=== PATIENT | female | born 1955 | race African-American/Black ===

== ENCOUNTER 2017-01-15 08:15 | Outpatient (RCR) | payer MEDICARE, OTHER ==
[~2017-01-15 08:15] MED LIST: ATENOLOL50 MG ORAL; BUSPAR10 MG PO; DILANTIN100 MG ORAL; ELIMITE 5% CREA60 GM TOPIC; FLUOXETINE HCL20 MG ORAL; PHENERGAN25 M1 ORAL; QUETIAPINE FUM200 MG ORAL; TRAZODONE HCL150 MG ORAL; ZOFRAN4 MG ORAL
== END 2017-02-04 | disposition home or self-care (01) ==
LOC: PTY 08:15
DX: M54.5 Low back pain (principal); M25.562 Pain in left knee
CPT/HCPCS: 97110; 97163; G0283; G8981; G8982

== ENCOUNTER 2017-02-06 07:00 | Outpatient (RCR) | payer MEDICARE, OTHER ==
[2017-02-13] MEDS ORDERED: ACETAMINOPHEN-1 EAC1 ORAL (15:22)
== END 2017-03-07 | disposition home or self-care (01) ==
LOC: PTY 07:00
DX: M54.5 Low back pain (principal); M25.562 Pain in left knee
CPT/HCPCS: 97110; G0283

== ENCOUNTER 2017-02-13 14:03 | Emergency (ER) | payer MEDICARE, OTHER ==
[~2017-02-13] VITALS: Ht 162.6 cm; Wt 68.0 kg
[2017-02-13 14:46] VITALS: BP 160/80
[2017-02-13] MEDS ORDERED: Tylenol #3 tab (300mg/30mg) ORAL ONE (15:00)
--- NOTE | 2017-02-13 15:11 | Diagnostic Imaging Report ---
Indication: Pain Findings: 3 views of the left wrist were obtained. There is sclerosis and heterogeneity of the lunate suspicious for AVN. No obvious fracture seen. There is narrowing of the radioscaphoid joint. Impression: Abnormal lunate. AVN may be present.
[2017-02-13] MEDS ORDERED: ACETAMINOPHEN-1 EAC1 ORAL (15:22)
[2017-02-13 15:34] VITALS: BP 160/80
--- NOTE | 2017-02-13 22:43 | Emergency Room Report ---
History of Present Illness General Chief Complaint: Upper Extremity Injury Source: Patient Present Illness HPI The patient is a 60-year-old female presenting for left wrist pain which began last night. The patient states that she awoke from a bad dream and swung the left wrist into her drawer by mistake. Pain is described as an 8/10 dull ache to the wrist and does not radiate. Pain worse with movement. She denies any previous injury to this area. She denies any numbness or tingling. She denies any other symptoms including rash, fever, chills Allergies: Coded Allergies: No Known Allergies (Verified , 05/09/08) Patient History Past Medical History: see triage record Pertinent Family History: none Reviewed Nursing Documentation: PMH: Agreed, PSxH: Agreed Nursing Documentation-PMH Hx Cardiac Problems: Yes Hx Hypertension: Yes Hx Pacemaker: No Hx Asthma: No Hx COPD: No Hx Diabetes: No Hx Cancer: No Hx Gastrointestinal Problems: No Hx Dialysis: No History Of Psychiatric Problem: Yes - depression Hx Neurological Problems: No Hx Cerebrovascular Accident: Yes Hx Seizures: No Review of Systems All Other Systems: negative except mentioned in HPI Physical Exam Vital Signs Date Time Temp Pulse Resp B/P Pulse Ox O2 Delivery O2 Flow Rate FiO2 02/13/17 14:25 97.9 72 16 160/80 98 02/13/17 14:46 Room Air Sp02 EP Interpretation: reviewed, normal General Appearance: no apparent distress, alert, GCS 15, non-toxic Head: normocephalic, atraumatic Eyes: bilateral eye PERRL, bilateral eye normal inspection Musculoskeletal: back normal, gait/station normal, normal range of motion, tender - TTP over the mid L wrist Neurologic: alert, oriented x3, responsive, motor strength/tone normal, sensory intact, normal gait, speech normal Psychiatric: judgement/insight normal, memory normal, mood/affect normal, no suicidal/homicidal ideation Skin: normal color, no rash, warm/dry, well hydrated Lymphatic: no adenopathy Procedures Splinting Splinting : Consent: Verbal Location: L wrist Pre-Made Type: velcro Splint: volar Pre-Proc Neuro Vasc Exam: normal Post-Proc Neuro Vasc Exam: normal Patient Tolerated: Well Complications: None Medical Decision Making PA Attestation Dr. Damico is my supervising physician. Patient management was discussed with my supervising physician Diagnostic Impression: Primary Impression: Wrist fracture, left Qualified Codes: S62.102A - Fracture of unspecified carpal bone, left wrist, initial encounter for closed fracture ER Course The patient is a 60-year-old female presenting for left wrist pain which began last night. Ddx considered include but not limited to sprain/strain, fracture, contusion Physical exam: Afebrile. No apparent distress. Left wrist: There is tenderness to palpation over the mid wrist. Full active range of motion. There is minimal edema to the medial aspect. No skin changes. Sensation is intact to light touch X-ray shows findings that may be consistent with AVN Patient denies previous fracture of this wrist. Volar splint is placed and the patient is given both disc and printout of findings. She will followup with orthopedics as soon as possible ER precautions are given Other X-Ray Diagnostic Results Other X-Ray Diagnostic Results : X-Ray Ordered: L wrist Date: February 13, 2017 EP Interpretation: Yes Findings: no dislocation, other - abnormal lunate Number of Views: 3 PA Scribe Text I am acting as scribe for my supervising physician. My supervising physician's interpretation of the L wrist xrays are there are findings that may be consistent with AVN of lunate. Last Vital Signs Date Time Temp Pulse Resp B/P Pulse Ox O2 Delivery O2 Flow Rate FiO2 02/13/17 15:34 97.9 72 16 160/80 98 Room Air Status: improved Disposition: HOME, SELF-CARE Condition: Improved Scripts Acetaminophen With Codeine (T#3) (TYLENOL #3 TAB*) Y Tab 1 TAB ORAL Q6HR Y for For Pain, #15 TAB Prov: EMMA HEMPHILL 02/13/17 Referrals: NON PHYSICIAN (PCP) Patient Instructions: Wrist Fracture, Wrist Pain Additional Instructions: I discussed my findings with the patient. All questions and concerns have been answered. Treatment and medication compliance have been addressed. I advised the patient that they need to follow up with PMD in 3-5 days. Return to ED if pain remains or worsens, numbness or tingling occurs, new rash is noticed, fever is noticed, or if needed for any reason. Patient verbalized understanding of discharge instructions. The patient was informed that she needs to see orthopedic doctor as soon as possible. She is given the x-ray findings as well as the images on a disc. EMMA HEMPHILL February 13, 2017 22:43
== END 2017-02-13 15:35 | disposition home or self-care (01) ==
LOC: EMR 15:32
DX: S62.102A Fracture of unspecified carpal bone, left wrist, initial encounter for closed fracture (principal); F32.9 Major depressive disorder, single episode, unspecified; Z86.73 Personal history of transient ischemic attack (TIA), and cerebral infarction without residual deficits; I10 Essential (primary) hypertension; W22.09XA Striking against other stationary object, initial encounter; Y92.003 Bedroom of unspecified non-institutional (private) residence as the place of occurrence of the external cause; Y99.8 Other external cause status
CPT/HCPCS: 29260; 99283

== ENCOUNTER 2017-03-14 07:45 | Outpatient (RCR) | payer MEDICARE, OTHER ==
[~2017-03-14 07:45] MED LIST changes: +ACETAMINOPHEN-1 EAC1 ORAL
== END 2017-04-06 | disposition home or self-care (01) ==
LOC: PTY 07:45
DX: M54.5 Low back pain (principal); M25.562 Pain in left knee
CPT/HCPCS: 97110; 97140; G0283

== ENCOUNTER 2018-11-29 11:54 | Inpatient (IN) | payer MEDICARE, OTHER ==
[~2018-11-29] VITALS: Ht 167.6 cm; Wt 79.4 kg
[2018-11-29] MEDS ORDERED: Morphine Sulfate 4mg/ml Inj (IV USE ONLY) IVP ONE ×2 (12:15→15:00)
[2018-11-29 12:42] LABS: EOSINOPHILS % (AUTO) 0.8 % (0.0-3.0); HEMATOCRIT 45.2 % (37.0-47.0); HEMOGLOBIN 15.6 G/DL (12.0-16.0); LYMPHOCYTES % (AUTO) 23.8 % (20.0-45.0); MEAN CORPUSCULAR VOLUME 89 FL (80-99); MONOCYTES % (AUTO) 8.8 % (1.0-10.0); NEUTROPHILS % (AUTO) 65.6 % (45.0-75.0); PLATELET COUNT 123 K/UL (150-450); RED BLOOD COUNT 5.05 M/UL (4.20-5.40); RED CELL DISTRIBUTION WIDTH 12.2 % (11.6-14.8); WHITE BLOOD COUNT 5.2 K/UL (4.8-10.8)
[2018-11-29] MEDS ORDERED: DiphenhydrAMINE 50mg/ml Inj IVP ONE (12:45)
[2018-11-29 12:56] LABS: ANION GAP 12 mmol/L (5-15); BLOOD UREA NITROGEN 36 mg/dL (7-18); CALCIUM 8.9 MG/DL (8.5-10.1); CARBON DIOXIDE 25 MMOL/L (21-32); CHLORIDE 94 MMOL/L (98-107); CREATININE 2.5 MG/DL (0.55-1.30); POTASSIUM 3.6 MMOL/L (3.5-5.1); SODIUM 130 MMOL/L (136-145)
[2018-11-29 12:59] LABS: ALANINE AMINOTRANSFERASE 60 U/L (12-78); ALBUMIN 3.5 G/DL (3.4-5.0); ALBUMIN/GLOBULIN RATIO 0.7 (1.0-2.7); ALKALINE PHOSPHATASE 178 U/L (46-116); ASPARTATE AMINO TRANSFERASE 82 U/L (15-37); BILIRUBIN,TOTAL 0.5 MG/DL (0.2-1.0)
--- NOTE | 2018-11-29 13:17 | Diagnostic Imaging Report ---
Indication: Cough Comparison: 08/14/2013 A single view chest radiograph was obtained. Findings: Cardiomediastinal appearance is within normal limits for age. The lungs are clear. Pulmonary vascularity is appropriate. The diaphragmatic contour is smooth and costophrenic angles are sharp. No pleural effusions are identified. The bones are unremarkable. Impression: No acute findings
--- NOTE | 2018-11-29 13:25 | Emergency Room Report ---
History of Present Illness General Chief Complaint: Flu Like Symptoms Source: Patient Present Illness HPI 63-year-old female with a history of seizure disorder on Dilantin, hypertension , stroke with left partial HP, psychiatric disease, p/w N/V/D, abdominal pain, f /c, myalgias for 3 days. She reports that this morning she woke up with an itchy rash on her arms as well. She reports she is not on any medications, has not been on antibiotics, and can't think of anything that triggered her symptoms. She does not have a recent seizure, she can compliant with Dilantin as well as all her other meds, and does not know what triggered the rash. Abdominal pain is vague, deep internal, achy moderate intensity. Allergies: Coded Allergies: No Known Allergies (Verified , 05/09/08) Patient History Past Medical History: see triage record Last Menstrual Period: n/a Reviewed Nursing Documentation: PMH: Agreed; PSxH: Agreed Nursing Documentation-PMH Past Medical History: No History, Except For Hx Cardiac Problems: Yes Hx Hypertension: Yes Hx Pacemaker: No Hx Asthma: No Hx COPD: No Hx Diabetes: No Hx Cancer: No Hx Gastrointestinal Problems: No Hx Dialysis: No Hx Neurological Problems: No Hx Cerebrovascular Accident: Yes Hx Seizures: No Review of Systems All Other Systems: negative except mentioned in HPI Physical Exam Vital Signs Date Time Temp Pulse Resp B/P (MAP) Pulse Ox O2 Delivery O2 Flow Rate FiO2 11/29/18 11:59 97.5 92 18 113/78 99 Room Air Sp02 EP Interpretation: reviewed, normal General Appearance: no apparent distress, alert, non-toxic Head: normocephalic Eyes: bilateral eye normal inspection, bilateral eye PERRL, bilateral eye EOMI ENT: normal ENT inspection, hearing grossly normal, normal pharynx, no angioedema, normal voice, moist mucus membranes Neck: normal inspection, full range of motion, supple, supple/symm/no masses Respiratory: chest non-tender, lungs clear, normal breath sounds, chest symmetrical, palpation of chest normal Cardiovascular #1: normal peripheral pulses, regular rate, rhythm Cardiovascular #2: 2+ radial (R), 2+ radial (L) Gastrointestinal: normal inspection, non tender, soft, no mass, no guarding, no rebound Rectal: deferred Genitourinary: normal inspection, no CVA tenderness Musculoskeletal: back normal, gait/station normal, normal range of motion, non- tender, no calf tenderness, Abdirahman's Sign negative Neurologic: alert, responsive, 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 On repeat abdominal exam patient with nontender abdomen, had subjective pain, never was very tender. No active vomiting nor diarrhea here. Patient was given IV benadryl 25mg and hives-like rxn on arms disappeared. No obvious triggers to hives like reaction, as patient reports no new medications, no changes in foods, chemical exposures, cosmetic products, or other obvious triggers. EKG Diagnostic Results EKG Time: 12:17 EP Interpretation: no stemi Rate: normal Rhythm: NSR ST Segments: no acute changes ASA given to the pt in ED: Yes Rhythm Strip Diag. Results Rhythm Strip Time: 13:23 EP Interpretation: yes Rate: 92 Rhythm: NSR, no PVC's, no ectopy Chest X-Ray Diagnostic Results Chest X-Ray Diagnostic Results : Chest X-Ray Ordered: Yes # of Views/Limited/Complete: 1 View Indication: Other - cough EP Interpretation: Yes Interpretation: no consolidation, no effusion, no pneumothorax, no acute cardiopulmonary disease Impression: No acute disease Electronically Signed by: Shelli Choi MD Last Vital Signs Date Time Temp Pulse Resp B/P (MAP) Pulse Ox O2 Delivery O2 Flow Rate FiO2 11/29/18 11:59 97.5 92 18 113/78 99 Room Air Disposition: HOME, SELF-CARE Condition: Stable Referrals: NOT CHOSEN HECTOR/,REFERRING (PCP) SHELLI CHOI M.D Nov 29, 2018 13:25
[2018-11-29 13:31] VITALS: BP 124/72
[2018-11-29 16:49] VITALS: BP 109/53
[2018-11-29] MEDS ORDERED: Phenytoin 100mg cap ORAL SCH (18:00)
[2018-11-29 18:30] LABS: APPEARANCE,URINE SLIGHTLY CLOUDY; BILIRUBIN, URINE NEGATIVE (NEGATIVE); GLUCOSE, URINE (UA) NEGATIVE (NEGATIVE); KETONES,URINE 1+ (NEGATIVE); LEUKOCYTE ESTERASE ,URINE 2+ (NEGATIVE); NITRITE,URINE NEGATIVE (NEGATIVE); PH,URINE 5 (4.5-8.0); PROTEIN,URINE 2+ (NEGATIVE); UROBILINOGEN,URINE 1 MG/DL (0.0-1.0)
[2018-11-29 18:31] LABS: COLOR,URINE YELLOW
[2018-11-29] MEDS: NS w/KCl 20mEq 1,000 ML IV SCH (19:41)
[2018-11-29] MEDS: Heparin 5000 units/ml inj SUBQ SCH (20:36)
[2018-11-30] VITALS: BP 104/58
--- NOTE | 2018-11-30 01:45 | History and Physical Report ---
DATE OF ADMISSION: 11/29/2018 REASON FOR ADMISSION: Nausea, vomiting, dehydration. HISTORY OF PRESENT ILLNESS: This is a 63-year-old female. She has had a prior stroke with left-sided hemiparesis. She presented to the emergency room with several days of abdominal pain, some nausea, vomiting, and myalgias. She had a rash on her body this afternoon. She has not been on any new medications or antibiotics of late and has not had any unusual dietary intake. She is compliant with her antiseizure medications that she takes and has not had any recent seizures. She has been on phenytoin for some time. The patient notes abdominal pain and related to her vomiting episodes. PAST MEDICAL HISTORY: Includes hypertension, cerebrovascular disease with left hemiparesis, seizure disorder, bipolar disorder. ALLERGIES: None. FAMILY HISTORY: Noncontributory. SOCIAL HISTORY: No current history of smoking, alcohol, or substance abuse. MEDICATIONS: Reviewed and reconciled. REVIEW OF SYSTEMS: No fevers or chills. No loss of vision or hearing. No history of hypertension or heart attack. No history of valve disease. No history of diabetes or thyroid disorder. No frequency or dysuria. No history of asthma or abnormal blood clotting. PHYSICAL EXAMINATION: VITAL SIGNS: Afebrile, blood pressure 113/78, pulse 92, respirations 18, and room air oxygen sat 99%. HEENT: Normocephalic, atraumatic. Conjunctivae pink. Oropharynx clear. Mucous membranes dry. NECK: Supple. No jugular venous distention. No adenopathy. LUNGS: Clear. CARDIAC: Regular rhythm and rate. Normal S1, S2. There is a fourth heart sound. No murmur. ABDOMEN: Soft, nontender. No guarding or rebound. EXTREMITIES: Good pulses. No edema. NEUROLOGIC: Left-sided weakness. SKIN: Some erythematous patches on the upper extremities, left greater than right. DIAGNOSTIC AND LABORATORY DATA: EKG with sinus rhythm, no acute abnormalities. Chest radiograph, no acute process. White count 5.3, hemoglobin 15. Sodium 130, potassium 3.6, chloride 94, bicarb 25, BUN 36, creatinine 2.5, glucose 113. Troponin 0.012. Urinalysis with 5 to 10 white cells, many bacteria. IMPRESSION: 1. Nausea. 2. Vomiting. 3. Hypovolemia. 4. Dehydration. 5. Acute kidney injury possibly with some chronic disease as well. 6. Urinary tract infection. 7. Hyponatremia. 8. Cerebrovascular disease with CVA and seizure disorder. 9. Pruritus, etiology unclear, may be an allergic reaction or related to her acute illness. RECOMMENDATIONS: 1. Saline hydration. 2. Continue antiseizure regimen and check levels. 3. Antipruritic. 4. Follow up electrolytes and renal function. 5. DVT and stress ulcer prophylaxes. 6. Hold antibiotics until culture is back in view of rash. Andrea Bocanegra M.D. DR: GRZEGORZ JOB#: [id number] CC:
[2018-11-30] MEDS: NS w/KCl 20mEq 1,000 ML IV SCH ×2 (03:02→11:00)
[2018-11-30] MEDS: Phenytoin 100mg cap ORAL SCH ×2 (03:03→11:00)
[2018-11-30 04:00] VITALS: BP 140/70
[2018-11-30 07:20] LABS: HEMATOCRIT 37.2 % (37.0-47.0); HEMOGLOBIN 13.2 G/DL (12.0-16.0); MEAN CORPUSCULAR VOLUME 90 FL (80-99); PLATELET COUNT 110 K/UL (150-450); RED BLOOD COUNT 4.11 M/UL (4.20-5.40); RED CELL DISTRIBUTION WIDTH 12.3 % (11.6-14.8)
[2018-11-30 07:54] LABS: ALANINE AMINOTRANSFERASE 142 U/L (12-78); ALBUMIN 3.1 G/DL (3.4-5.0); ALBUMIN/GLOBULIN RATIO 0.7 (1.0-2.7); ALKALINE PHOSPHATASE 231 U/L (46-116); ANION GAP 7 mmol/L (5-15); ASPARTATE AMINO TRANSFERASE 232 U/L (15-37); BILIRUBIN,TOTAL 0.4 MG/DL (0.2-1.0); BLOOD UREA NITROGEN 24 mg/dL (7-18); CALCIUM 8.3 MG/DL (8.5-10.1); CARBON DIOXIDE 24 MMOL/L (21-32); CHLORIDE 103 MMOL/L (98-107); CREATININE 1.3 MG/DL (0.55-1.30); POTASSIUM 3.6 MMOL/L (3.5-5.1); SODIUM 134 MMOL/L (136-145)
[2018-11-30] MEDS: Heparin 5000 units/ml inj SUBQ SCH (09:00)
[2018-11-30] MEDS ORDERED: LYRICA75 M1 ORAL (10:21)
[2018-11-30] MEDS ORDERED: LOSARTAN POTASS50 MG ORAL (10:21)
[2018-11-30] MEDS ORDERED: NORVASC5 MG ORAL (10:21)
[2018-11-30] MEDS ORDERED: BUSPAR10 MG ORAL (10:21)
[2018-11-30] MEDS ORDERED: ATORVASTATIN CA40 MG ORAL (10:21)
[2018-11-30] MEDS ORDERED: SEROQUEL200 MG ORAL (10:21)
[2018-11-30] MEDS ORDERED: FLUOXETINE HCL40 MG ORAL (10:21)
[2018-11-30] MEDS ORDERED: Phenytoin 100mg cap ORAL SCH (10:45)
[2018-11-30] MEDS ORDERED: BusPIRone 10mg Tab ORAL SCH (13:00)
[2018-11-30] MEDS ORDERED: Lyrica 75mg cap ORAL SCH (13:00)
--- NOTE | 2018-12-01 05:00 | Progress Note ---
DATE: 11/30/2018 CARDIOLOGY AND INTERNAL MEDICINE PROGRESS NOTE SUBJECTIVE: No new vomiting. Nausea resolved. Appetite poor. She is now noting pain in her legs and back. She is requesting her Lyrica and to be resumed. OBJECTIVE: VITAL SIGNS: Blood pressure 140/70, pulse 65, and respiratory rate 17. LUNGS: Clear. CARDIAC: Regular. ABDOMEN: Soft, nontender, and nondistended. EXTREMITIES: No edema. LABORATORY DATA: White count 3 and hemoglobin 13. Sodium 134, potassium 3.6, BUN 24, and creatinine 1.3. Liver function studies have increased. B12 folate and thyroid function normal. IMPRESSION: 1. Hypovolemia and dehydration, improved. 2. Hyponatremia, resolving. 3. Acute renal failure, improved with hydration. 4. Transaminitis, etiology unclear. 5. Mild protein-calorie malnutrition. 6. Cerebrovascular accident with left hemiparesis. 7. Seizure disorder with mildly subtherapeutic Dilantin level. PLAN: 1. Continue hydration. 2. Abdominal ultrasound. 3. Re-dose Dilantin. 4. Avoid Tylenol. 5. GI consultation. Andrea Bocanegra M.D. DR: DIANNE JOB#: [id number] CC:
--- NOTE | 2018-12-02 08:13 | Discharge Summary ---
Discharge Summary Discharge Summary _ DATE OF ADMISSION: 11/29/2018 DATE OF DISCHARGE: 11/30/2018 Patient left AGAINST MEDICAL ADVICE REASON FOR ADMISSION: 63 years old female with past medical history of hypertension, history of CVA with left-sided hemiparesis, seizure disorder, psychiatric disorder presented to emergency department with complaints of nausea vomiting, and abdominal pain. Patient reported fever, chills, and myalgia for three days. 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 Patient reported not being on any medication , including not on any antibiotics. She was unable to think of anything that triggered her symptoms. Patient denied recent seizure. Abdominal pain was achy and of moderate intensity. Upon evaluation vital signs were stable Laboratory workup revealed no leukocytosis, stable hemoglobin and hematocrit. Sodium 130. BUN 36, creatinine 2.5. AST 82, ALT 60. Troponin - 0.012. EKG revealed normal sinus rhythm, no acute ischemic changes. Rapid influenza screen test was negative. Urinalysis revealed evidence of UTI with pyuria, many bacteria, positive leukocyte esterase. Dilantin level was subtherapeutic -6.2. Chest x-ray revealed no acute cardiopulmonary pathology. Patient was admitted for further management HOSPITAL COURSE: Patient admitted to telemetry floor. Patient started on saline IV hydration. Symptomatic treatment with antipruritic provided. DVT and GI prophylaxis provided. Renal parameters and electrolytes were closely monitored. Electrolytes corrected as needed. Seizure precaution maintained. Dilantin re dosed due to subtherapeutic level. Patient was encouraged compliance with medication at home. Antibiotics were held until urine culture back in view of recent rash. Hyponatremia was resolving with IV hydration, sodium up to 134. Renal parameters showed significant improvement:BUN from 36 down to 24 and creatinine from 2.5 down to 1.3. TSH within normal limits, folate and B12 stable. Next day noted significantly elevated liver enzymes: AST up to 222, ALT 142. Abdominal ultrasound was ordered. Tylenol was avoided. GI consult requested. Patient decided to sign AGAINST MEDICAL ADVICE. The risks and consequences of signing AGAINST MEDICAL ADVICE were discussed with patient in detail. Patient verbalized understanding, nevertheless she left. Of note at the time of this dictation , urine culture revealed yeast with colony count 10-20 K. FINAL DIAGNOSES: Nausea and vomiting Dehydration with hypovolemia -improved Acute kidney injury possibly with some chronic renal insufficiency improved Possible urinary tract infection Hyponatremia resolving Transaminitis of unknown etiology Cerebrovascular disease with history of CVA and left-sided hemiparesis Seizure disorder Pruritus of unknown etiology possibly allergic reaction versus related to acute illness Mild protein calorie malnutrition I have been assigned to dictate discharge summary for this account. I was not involved in the patient's management. Jenni Oneal NP Dec 02, 2018 08:13
== END 2018-11-30 12:45 | disposition left against medical advice (07) | DRG 641 ==
LOC: EMR 12:40 → 2E 13:04 → EDBEDREQ 13:52 → 2E 17:43
DX: E86.0 Dehydration (principal); N39.0 Urinary tract infection, site not specified; N17.9 Acute kidney failure, unspecified; I69.354 Hemiplegia and hemiparesis following cerebral infarction affecting left non-dominant side; E44.1 Mild protein-calorie malnutrition; R11.2 Nausea with vomiting, unspecified; E87.1 Hypo-osmolality and hyponatremia; I10 Essential (primary) hypertension; L29.9 Pruritus, unspecified; E86.1 Hypovolemia; R74.0 Nonspecific elevation of levels of transaminase and lactic acid dehydrogenase [LDH]; F31.9 Bipolar disorder, unspecified
CPT/HCPCS: 36415; 71045; 80053; 80185; 81003; 82306; 82607; 82746; 83690; 84443; 84484; 85007; 85025; 86710; 87086; 93005; 96361; 96374; 96375; 96376; 99285; J2405